=== PATIENT | female | born 1980 | race Caucasian/White ===

== ENCOUNTER → 2019-07-19 | Outpatient (CLI) | payer OTHER ==
--- NOTE | 2019-07-19 17:39 | Diagnostic Imaging Report ---
INDICATION: Trauma to right foot. FINDINGS: There is a transverse fracture extending across the base of the fifth proximal metatarsal. This is approximately 11 mm from the tip of the metatarsal. There is no displacement. No other fractures are noted. IMPRESSION: Transverse fracture of the base of the proximal fifth metatarsal as described. Dictated by: Dictated on workstation # [id number]
== END ==
LOC: RAD FS 17:20
PROVIDERS: ATTEND Emergency Medicine
DX: S92.351A Displaced fracture of fifth metatarsal bone, right foot, initial encounter for closed fracture (principal); S93.601A Unspecified sprain of right foot, initial encounter
CPT/HCPCS: 73630

== ENCOUNTER → 2019-07-26 | Outpatient (CLI) | payer OTHER ==
--- NOTE | 2019-07-26 18:09 | Diagnostic Imaging Report ---
INDICATION: Right foot injury. AP, oblique, and lateral views of the right foot are obtained. There is no change in the acute fracture of the base of the fifth metatarsal when compared to the previous study. 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 There is no new bony abnormality otherwise seen. IMPRESSION: Stable appearance of fifth metatarsal fracture. 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 Dictated by: Dictated on workstation # [id number]
== END ==
LOC: RAD FS 16:57
PROVIDERS: ATTEND Emergency Medicine
DX: S93.601A Unspecified sprain of right foot, initial encounter (principal); S92.351A Displaced fracture of fifth metatarsal bone, right foot, initial encounter for closed fracture
CPT/HCPCS: 73630

== ENCOUNTER → 2019-08-02 | Outpatient (CLI) | payer OTHER ==
--- NOTE | 2019-08-02 18:22 | Diagnostic Imaging Report ---
INDICATION: Injury to right foot. AP, oblique, and lateral views of the right foot are obtained and compared to 07/26/2019. FINDINGS: There is no change in the alignment of the fracture of the base of the fifth metatarsal. Remaining bony structures are intact. There is underlying degenerative change of the first MTP joint. IMPRESSION: Stable appearance of the fifth metatarsal fracture compared to 07/26/2019. 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 Dictated by: Dictated on workstation # [id number]
== END ==
LOC: RAD FS 16:38
PROVIDERS: ATTEND Emergency Medicine
DX: S92.351A Displaced fracture of fifth metatarsal bone, right foot, initial encounter for closed fracture (principal); S93.601A Unspecified sprain of right foot, initial encounter
CPT/HCPCS: 73630